=== PATIENT | male | born 1950 | race Caucasian/White ===

== ENCOUNTER 2022-05-26 05:45 | Emergency (ER) | payer OTHER ==
[~2022-05-26] VITALS: Ht 180.3 cm; Wt 75.0 kg
[2022-05-26 07:26] VITALS: BP 138/74
== END 2022-05-26 09:25 | disposition home or self-care (01) ==
LOC: EDBD 05:45 → ER 05:45
DX: S39.011A Strain of muscle, fascia and tendon of abdomen, initial encounter (principal); X58.XXXA Exposure to other specified factors, initial encounter; Y93.89 Activity, other specified; Y92.89 Other specified places as the place of occurrence of the external cause; Y99.8 Other external cause status
CPT/HCPCS: 73502

== ENCOUNTER 2022-07-19 16:31 | Emergency (ER) | payer OTHER ==
[~2022-07-19] VITALS: Ht 175.3 cm; Wt 87.0 kg
[2022-07-19] MEDS ORDERED: LORazepam 2MG/ML-1ML VIAL ONE (16:44)
[2022-07-19] MEDS ORDERED: diphenhdrAMINE HCL 50 MG/1 ML VL IV ONE (16:45)
[2022-07-19] MEDS ORDERED: LORazepam 2MG/ML-1ML VIAL IV ONE (17:00)
[2022-07-19 17:11] LABS: Basophils # (auto) 0 10 ^3/uL (0-0.2); Basophils % (auto) 0.2 % (0.0-2.0); Eosinophils # (auto) 0 10 ^3/uL (0-0.8); Eosinophils % (auto) 0.9 % (0.0-7.0); Hematocrit 31.6 % (41.0-53.0); Hemoglobin 10.8 g/dL (13.5-17.5); Lymphocytes # (auto) 0.9 10 ^3/uL (0.4-5.4); Lymphocytes % (auto) 20.1 % (10.0-50.0); Mean Corpuscular Hemoglobin 27.9 pg (28.0-32.0); Mean Corpuscular Hgb Conc. 34.3 g/dL (32.0-36.0); Mean Corpuscular Volume 81.5 fL (80.0-100.0); Monocytes # (auto) 0.4 10 ^3/uL (0-1.3); Monocytes % (auto) 9.8 % (0.0-12.0); Neutrophils # (auto) 3.1 10 ^3/uL (1.6-8.6); Nucleated Red Blood Cells % 0.1 %; Red Blood Cells 3.87 10^6/uL (4.5-5.90); Red Cell Distribution Width 15.8 % (11.8-14.3); White Blood Cell 4.4 10^3/uL (4.4-10.8)
[2022-07-19 17:43] LABS: Albumin 3.1 g/dL (3.4-5.0); BUN/Creatinine Ratio 20.8 (10.0-20.0); Calcium 8.9 mg/dL (8.5-10.1)
[2022-07-19 17:45] LABS: Bilirubin, Total 1.2 mg/dL (0.2-1.0); Total Protein 6.1 g/dL (6.4-8.2)
[2022-07-19] MEDS ORDERED: CARBIDOPA W LEVODOPA 25/100mg TABLET PO ONE (20:30)
[2022-07-20 07:51] VITALS: BP 114/68
== END 2022-07-20 10:20 | disposition home or self-care (01) ==
LOC: EDBD 16:31 → ER 16:31
DX: G20 Parkinson's disease (principal)
CPT/HCPCS: 36415; 80053; 80320; 83735; 85025; 96374; 96375; 99285; J1200; J2060